=== PATIENT | female | born 1965 | race Caucasian/White ===

== ENCOUNTER → 2017-03-30 | Outpatient (CLI) | payer OTHER ==
[2015-11-16 16:47] VITALS: BP 139/57
[~2017-03-30] MED LIST: ALBU8.5H6 IH; CELE50CA PO; CHOL100017 PO; FLUT1DIS3 IH; LAMO200T3 PO; LISI-334 PO; LORA10CA PO; NAPR500T3 PO; TRAM50TA PO; [UNRECOGNIZED DRUG - REMARK]; [UNRECOGNIZED DRUG - REMARK] PO
--- NOTE | 2017-03-30 15:44 | RAD ---
DATE: 03/30/2017 EXAM: DIGITAL SCREEN BILAT W/CAD HISTORY: Routine screening. COMPARISON: 10/31/2012. This study was interpreted with the benefit of Computerized Aided Detection (CAD). FINDINGS: The parenchymal pattern is stable. No discrete mass or malignant appearing microcalcifications are identified. There are benign calcifications bilaterally. The axillae are unremarkable. Breast Density: FATTY The breast parenchyma is primarily fatty replaced. Breast parenchyma level density A. IMPRESSION: No mammographic features suspicious for malignancy are identified. BI-RADS CATEGORY: 2 BENIGN FINDING(S) RECOMMENDED FOLLOW-UP: 12M 12 MONTH FOLLOW-UP PQRS compliance statement: Patient information was entered into a reminder system with a target due date 03/30/2018 for the next mammogram. Mammography is a sensitive method for finding small breast cancers, but it does not detect them all and is not a substitute for careful clinical examination. A negative mammogram does not negate a clinically suspicious finding and should not result in delay in biopsying a clinically suspicious abnormality. "Our facility is accredited by the [employer] Mammography [employer]."
== END | disposition home or self-care (01) ==
LOC: MAMMO 14:43
PROVIDERS: ATTEND Nurse Practitioner
DX: Z12.31 Encounter for screening mammogram for malignant neoplasm of breast (principal)
CPT/HCPCS: G0202; 77067

== ENCOUNTER 2018-04-15 16:03 | Emergency (ER) | payer OTHER ==
[~2018-04-15] VITALS: Ht 152.4 cm; Wt 97.1 kg
[~2018-04-15 16:03] MED LIST changes: +NAPR-514 PO; -NAPR500T3 PO
[2018-04-15 16:05] VITALS: BP 131/73
--- NOTE | 2018-04-15 16:48 | RAD ---
CT head without intravenous contrast History: Nausea, vomiting, headache. Trauma to head 5 days ago. Comparison: None. Technique: Axial images are obtained of the head from the skull base through the vertex without IV contrast. Exposure: One or more of the following individualized dose reduction techniques were utilized for this examination: 1. Automated exposure control 2. Adjustment of the mA and/or kV according to patient size 3. Use of iterative reconstruction technique Findings: The ventricles are appropriate in size, shape, and location for the patient's age. No obvious intracranial mass, mass-effect, midline shift, hemorrhage or obvious acute infarction is identified. Basilar cisterns are patent. Bone windows demonstrate no acute calvarial abnormality. The visualized paranasal sinuses appear clear. Impression: 1. No acute intracranial process. Electronically signed by: Isaiah Guerin MD (04/15/2018 4:45 PM) [facility]
[2018-04-15] MEDS ORDERED: ONDA4TAB10 SL (17:07)
--- NOTE | 2018-04-15 17:08 | PHYS DOC ---
Past History Past Medical History: Asthma, Heart Disease, Hypertension, Other Past Surgical History: , Other Smoking: Less than 1pk/day Alcohol Use: None Drug Use: Other Adult General Chief Complaint Chief Complaint: HEADACHE HPI HPI Patient is a very pleasant 52-year-old female who presents for evaluation of headache, nausea, and difficulty concentrating since a head injury Sunday.` She states that she purchase some wooden furniture at a store which she loaded into her car and when she was leaving the parking lot she turned and the box hit her in the right side of the head. She states she has missed a few days of work because of the pain as well as the nausea and vomiting and that her work will need a note. She does not want anything for pain that she is willing to have something for nausea. She is alert and oriented 4, calm, and appears to be no distress. She states that the nausea was worse on Sunday and is gradually been getting better same with the pain. Review of Systems Review of Systems Constitutional: Denies fever or chills [] Eyes: Denies change in visual acuity, redness, or eye pain [] HENT: Denies nasal congestion or sore throat [] Respiratory: Denies cough or shortness of breath [] Cardiovascular: No additional information not addressed in HPI [] GI: Denies abdominal pain,bloody stools or diarrhea [] +N/V : Denies dysuria or hematuria [] Musculoskeletal: Denies back pain or joint pain [] Integument: Denies rash or skin lesions [] Neurologic: Denies focal weakness or sensory changes [] +FIGUEROA Endocrine: Denies polyuria or polydipsia [] All other systems were reviewed and found to be within normal limits, except as documented in this note. Allergies Allergies Allergies Coded Allergies Type Severity Reaction Last Updated Verified Sulfa (Sulfonamide Antibiotics) Allergy Intermediate 12/20/13 Yes ciprofloxacin Allergy Intermediate 12/20/13 Yes ciprofloxacin HCl Allergy Intermediate 12/20/13 Yes latex Allergy Intermediate 12/20/13 Yes Physical Exam Physical Exam Constitutional: Well developed, well nourished, no acute distress, non-toxic appearance. [] calm, appears comfortable HENT: Normocephalic, atraumatic, bilateral external ears normal, oropharynx moist, no oral exudates, nose normal. [] No head trauma noted Eyes: PERRLA, EOMI, conjunctiva normal, no discharge. [] Neck: Normal range of motion, no tenderness, supple, no stridor. [] NEXUS negative Cardiovascular:Heart rate regular rhythm, no murmur [] Lungs & Thorax: Bilateral breath sounds clear to auscultation [] Abdomen: Bowel sounds normal, soft, no tenderness, no masses, no pulsatile masses. [] Skin: Warm, dry, no erythema, no rash. [] Back: No tenderness, no CVA tenderness. [] Extremities: No tenderness, no cyanosis, no clubbing, ROM intact, no edema. [] Neurologic: Alert and oriented X 3, normal motor function, normal sensory function, no focal deficits noted. [] Psychologic: Affect normal, judgement normal, mood normal. [] Current Patient Data Vital Signs Vital Signs Date Time Temp Pulse Resp B/P (MAP) Pulse Ox O2 Delivery O2 Flow Rate FiO2 04/15/18 16:05 98.4 70 18 98 Room Air EKG EKG [] Radiology/Procedures Radiology/Procedures [address] [address] IMAGING REPORT Signed PATIENT: ZHANG STEWART ACCOUNT: [id number] : 1965 LOCATION: ER AGE: 52 SEX: F EXAM STATUS: REG ER ORD. PHYSICIAN: BRENDA BOLAÑOS DO REASON: headache, n/v, recent head trauma PROCEDURE: CT HEAD WO CONTRAST CT head without intravenous contrast History: Nausea, vomiting, headache. Trauma to head 5 days ago. Comparison: None. Technique: Axial images are obtained of the head from the skull base through the vertex without IV contrast. Exposure: One or more of the following individualized dose reduction techniques were utilized for this examination: 1. Automated exposure control 2. Adjustment of the mA and/or kV according to patient size 3. Use of iterative reconstruction technique Findings: The ventricles are appropriate in size, shape, and location for the patient's age. No obvious intracranial mass, mass-effect, midline shift, hemorrhage or obvious acute infarction is identified. Basilar cisterns are patent. Bone windows demonstrate no acute calvarial abnormality. The visualized paranasal sinuses appear clear. Impression: 1. No acute intracranial process. Electronically signed by: Isaiah Henriquez MD (04/15/2018 4:45 PM) [facility] DICTATED AND SIGNED BY: ISAIAH HENRIQUEZ MD DATE: 04/15/18 0161 CC: BRENDA BOLAÑOS DO; SHOLA CAUSEY MD ~ Course & Med Decision Making Course & Med Decision Making Pertinent Labs and Imaging studies reviewed. (See chart for details) [] Dragon Disclaimer Dragon Disclaimer This electronic medical record was generated, in whole or in part, using a voice recognition dictation system. Departure Departure: Impression: Primary Impression: Closed head injury Additional Impression: Concussion Disposition: HOME, SELF-CARE Condition: STABLE Referrals: SHOLA CAUSEY MD (PCP) Patient Instructions: Concussion and Brain Injury, Head Injury, Adult Additional Instructions: Take a nausea medicine as prescribed, as needed. Return to the ER immediately for new or worsening symptoms. Follow up with your doctor in the next 2-3 days. Scripts Ondansetron (ZOFRAN ODT) 4 Mg Tab.rapdis 1 TAB SL Q8HRS, #20 TAB Prov: BRENDA BOLAÑOS DO 04/15/18 Problem Qualifiers BRENDA BOLAÑOS DO Apr 15, 2018 17:08
== END 2018-04-15 17:13 | disposition home or self-care (01) ==
LOC: ER 16:03
DX: S06.0X0A Concussion without loss of consciousness, initial encounter (principal); I11.9 Hypertensive heart disease without heart failure; J45.909 Unspecified asthma, uncomplicated; F17.200 Nicotine dependence, unspecified, uncomplicated; Z88.2 Allergy status to sulfonamides; Z88.1 Allergy status to other antibiotic agents; Z91.040 Latex allergy status; W22.8XXA Striking against or struck by other objects, initial encounter; Y93.89 Activity, other specified; Y99.8 Other external cause status; Y92.481 Parking lot as the place of occurrence of the external cause
CPT/HCPCS: 70450; 99284-25

== ENCOUNTER 2018-11-26 16:31 | Emergency (ER) | payer OTHER ==
[~2018-11-26] VITALS: Ht 149.9 cm; Wt 99.8 kg
[~2018-11-26 16:31] MED LIST changes: +BUPR100T7 PO; +METF500T16 PO; +ONDA4TAB10 SL
[2018-11-26 16:37] VITALS: BP 139/72
--- NOTE | 2018-11-26 17:09 | PHYS DOC ---
Past History Past Medical History: Bipolar, Depression, Hypertension, Other Past Surgical History: , Knee Replacement, Other Smoking: Less than 1pk/day Alcohol Use: None Drug Use: Cocaine Social History Narrative: last week Adult General Chief Complaint Chief Complaint: head injury HPI HPI Patient is a 53 year old female who presents with complaining of head injury with headache and confusion. Patient states she was asked for 3 weeks ago and a metal bar hit her on her forehead without loss of consciousness. Patient states she has had frontal headache with confusion, ringing in her ear, blurred vision , nausea since her head injury. Patient rated her pain 6/10 and states she took [id number] pain medication didn't seek medical attention regarding the injury patient states she was fired 4 days after injury and her insurance is going to in 2 days and wants to have head CT before expiring insurance. Review of Systems Review of Systems Constitutional: Denies fever or chills [] Eyes: Denies change in visual acuity, redness, or eye pain [] HENT: Denies nasal congestion or sore throat [] Respiratory: Denies cough or shortness of breath [] Cardiovascular: No additional information not addressed in HPI [] GI: Denies abdominal pain, nausea, vomiting, bloody stools or diarrhea [] : Denies dysuria or hematuria [] Musculoskeletal: Denies back pain or joint pain [] Integument: Denies rash or skin lesions [] Neurologic: Reports headache and confusion, denies focal weakness or sensory changes [] Endocrine: Denies polyuria or polydipsia [] All other systems were reviewed and found to be within normal limits, except as documented in this note. Allergies Allergies Allergies Coded Allergies Type Severity Reaction Last Updated Verified Sulfa (Sulfonamide Antibiotics) Allergy Intermediate 12/20/13 Yes ciprofloxacin Allergy Intermediate 12/20/13 Yes ciprofloxacin HCl Allergy Intermediate 12/20/13 Yes latex Allergy Intermediate 12/20/13 Yes morphine Allergy Intermediate 04/21/18 Yes Physical Exam Physical Exam Constitutional: Well developed, well nourished, mild distress, non-toxic appearance. [] HENT: Normocephalic, atraumatic. Eyes: PERRLA, EOMI, conjunctiva normal, no discharge. [] Neck: Normal range of motion, no tenderness, supple, no stridor. [] Cardiovascular:Heart rate regular rhythm, no murmur [] Lungs & Thorax: Bilateral breath sounds clear to auscultation [] Abdomen: Bowel sounds normal, soft, no tenderness, no masses, no pulsatile masses. [] Skin: Warm, dry, no erythema, no rash. [] Back: No tenderness, no CVA tenderness. [] Extremities: No tenderness, no cyanosis, no clubbing, ROM intact, no edema. [] Neurologic: Alert and oriented X 3, normal motor and sensation. Psychologic: Affect anxious, judgement normal, mood normal. [] Current Patient Data Vital Signs Vital Signs Date Time Temp Pulse Resp B/P (MAP) Pulse Ox O2 Delivery O2 Flow Rate FiO2 11/26/18 16:37 97.6 66 20 96 Room Air EKG EKG [] Radiology/Procedures Radiology/Procedures [address] [address] IMAGING REPORT Signed PATIENT: ZHANG STEWART ACCOUNT: [id number] : 1965 LOCATION: ER AGE: 53 SEX: F EXAM STATUS: REG ER ORD. PHYSICIAN: MARY SELLERS MD REASON: head injury 3 weeks ago PROCEDURE: CT HEAD WO CONTRAST PQRS Compliance statement: One or more of the following individualized dose reduction techniques were utilized for this examination: 1. Automated exposure control. 2. Adjustment of the mA and/or kV according to patient size. 3. Use of iterative reconstruction technique. Indication:HEADACHE, INJURY TO HEAD THREE WEEKS AGO. DIZZINESS TECHNIQUE: CT head without IV contrast COMPARISON:None FINDINGS: No pathologic extra-axial or intra-axial fluid collection. The ventricles and basal cisterns are within normal limits. No acute intracranial bleed. No focal loss of johnson-white differentiation. No large scalp hematoma. Visualized orbits within normal limits. No acute calvarial fractures. Visualized paranasal sinuses and mastoid air cells are clear. IMPRESSION: No acute intracranial process. Electronically signed by: Ministerio Wong DO (11/26/2018 5:22 PM) [facility] DICTATED AND SIGNED BY: MINISTERIO WONG DO DATE: 11/26/18 1807 CC: MARY SELLERS MD; SHOLA CAUSEY MD ~ Course & Med Decision Making Course & Med Decision Making Pertinent Imaging studies reviewed. (See chart for details) discharge: I've spoken with the patient and/or caregivers. I've explained the patient's condition, diagnosis and treatment plan based on information available to me at this time. I've answered the patient's and/or caregivers questions and addressed any concerns. The patient and/or caregivers have a good understanding the patient's diagnosis, condition and treatment plan as can be expected at this point. Vital signs have been stabilized. The patient's condition is stable for discharge from the emergency department. The patient will pursue further outpatient evaluation with her primary care provider or other designated consulting physician as outlined in the discharge instructions. Patient and/or caregivers are agreeable to this plan of care and follow-up instructions have been explained in detail. The patient and/or caregivers have received these instructions in written format and expressed understanding of these discharge instructions. The patient and her caregivers are aware that if any significant change in condition or worsening of symptoms should prompt him to immediately return to this of the closest emergency department. If an emergent department is not readily available I would encourage him to call 911. Dragon Disclaimer Dragon Disclaimer This electronic medical record was generated, in whole or in part, using a voice recognition dictation system. Departure Departure: Impression: Primary Impression: Closed head injury Additional Impressions: Nausea Tobacco abuse Tobacco abuse counseling Disposition: HOME, SELF-CARE (at 1755) Condition: STABLE Referrals: SHOLA CAUSEY MD (PCP) Patient Instructions: Concussion and Brain Injury, Head Injury, Adult, Smoking Cessation Additional Instructions: Drink plenty of liquids Follow-up with your primary care physician in 3-5 days Return to ER if not getting better Scripts Ondansetron Hcl (ZOFRAN) 4 Mg Tablet 1 TAB PO Q6HRS for nausea and vomiting, #12 TAB Prov: MARY SELLERS MD 11/26/18 Naproxen (NAPROSYN) 500 Mg Tablet 500 MG PO BID for pain, #20 TAB Prov: MARY SELLERS MD 11/26/18 Cyclobenzaprine Hcl (CYCLOBENZAPRINE HCL) 10 Mg Tablet 1 TAB PO TID for pain, #30 TAB Prov: MARY SELLERS MD 11/26/18 Problem Qualifiers MARY SELLERS MD Nov 26, 2018 17:09
--- NOTE | 2018-11-26 17:25 | RAD ---
PQRS Compliance statement: One or more of the following individualized dose reduction techniques were utilized for this examination: 1. Automated exposure control. 2. Adjustment of the mA and/or kV according to patient size. 3. Use of iterative reconstruction technique. Indication:HEADACHE, INJURY TO HEAD THREE WEEKS AGO. DIZZINESS TECHNIQUE: CT head without IV contrast COMPARISON:None FINDINGS: No pathologic extra-axial or intra-axial fluid collection. The ventricles and basal cisterns are within normal limits. No acute intracranial bleed. No focal loss of johnson-white differentiation. No large scalp hematoma. Visualized orbits within normal limits. No acute calvarial fractures. Visualized paranasal sinuses and mastoid air cells are clear. IMPRESSION: No acute intracranial process. Electronically signed by: Ministerio Wong DO (11/26/2018 5:22 PM) [facility]
[2018-11-26] MEDS ORDERED: NAPR-683 PO (17:56)
[2018-11-26] MEDS ORDERED: CYCL-331 PO (17:56)
[2018-11-26] MEDS ORDERED: ONDA4TAB7 PO (17:56)
== END 2018-11-26 18:04 | disposition home or self-care (01) ==
LOC: ER 16:31
DX: S09.90XA Unspecified injury of head, initial encounter (principal); R41.0 Disorientation, unspecified; R42 Dizziness and giddiness; R11.0 Nausea; I10 Essential (primary) hypertension; F31.9 Bipolar disorder, unspecified; F17.200 Nicotine dependence, unspecified, uncomplicated; Z71.6 Tobacco abuse counseling; Z88.2 Allergy status to sulfonamides; Z88.1 Allergy status to other antibiotic agents; Z91.040 Latex allergy status; Z88.5 Allergy status to narcotic agent; W22.8XXA Striking against or struck by other objects, initial encounter; Y93.89 Activity, other specified; Y92.89 Other specified places as the place of occurrence of the external cause; Y99.8 Other external cause status
CPT/HCPCS: 70450; 99284-25

== ENCOUNTER 2019-04-15 13:42 | Emergency (ER) | payer OTHER ==
[~2019-04-15] VITALS: Ht 149.9 cm; Wt 90.9 kg
[~2019-04-15 13:42] MED LIST changes: +CYCL-331 PO; +NAPR-683 PO; +ONDA4TAB7 PO
--- NOTE | 2019-04-15 15:48 | RAD ---
Examination: Lower Extremity Venous Doppler Ultrasound History: Left foot pain Comparison: None Procedure: Ferrer scale, color flow 2D and spectal waveform analysis images are obtained with and without compression in the area of the common femoral vein, superficial femoral vein - femoral vein junction, main femoral vein (superficial femoral vein) and popliteal vein. Veins of the proximal calf are also imaged. Findings: There is normal duplex flow, color flow and compressibility of all visualized vein segments. No evidence of deep venous thrombus is present. Impression: No evidence of DVT in the left lower extremity venous system. Electronically signed by: Denis Mccain MD (04/15/2019 3:45 PM) [facility]
[2019-04-15] MEDS ORDERED: COLC0.6T34 PO (16:04)
[2019-04-15] MEDS ORDERED: HYDR-3165 PO (16:04)
--- NOTE | 2019-04-15 16:04 | PHYS DOC ---
Past History Past Medical History: Hypertension Past Surgical History: , Knee Replacement, Other Smoking: Less than 1pk/day Alcohol Use: Occasionally Additional Alcohol Information: When she does drinks she binge drinks 1-2 times per month Drug Use: Cocaine Social History Narrative: Last cocaine use was last week. Adult General Chief Complaint Chief Complaint: Foot pain HPI HPI Patient is a 53 year old female who presents with complaining of left foot and leg pain. Patient states she has had left leg and calf pain for almost 2 weeks after she had a fall and concern for possible blood clot. Also complaining of left foot pain for couple days as a severe pain and rated her pain 10 over 10 without injury and states she had the same pain previously with an episode of gout. Patient denies fever and chills, shortness of breath, focal neuro deficit, history of DVT and PE. Review of Systems Review of Systems Constitutional: Denies fever or chills [] Eyes: Denies change in visual acuity, redness, or eye pain [] HENT: Denies nasal congestion or sore throat [] Respiratory: Denies cough or shortness of breath [] Cardiovascular: No additional information not addressed in HPI [] GI: Denies abdominal pain, nausea, vomiting, bloody stools or diarrhea [] : Denies dysuria or hematuria [] Musculoskeletal: Denies back pain, reports joint pain [] Integument: Denies rash or skin lesions [] Neurologic: Denies headache, focal weakness or sensory changes [] Endocrine: Denies polyuria or polydipsia [] All other systems were reviewed and found to be within normal limits, except as documented in this note. Current Medications Current Medications Current Medications Medications (Trade) Dose Ordered Sig/Raman Start Time Stop Time Status Last Admin Dose Admin Fentanyl Citrate (Fentanyl 2ml Vial) 100 mcg STK-MED ONCE 04/15/19 14:47 04/15/19 14:48 DC Allergies Allergies Allergies Coded Allergies Type Severity Reaction Last Updated Verified Sulfa (Sulfonamide Antibiotics) Allergy Intermediate 12/20/13 Yes ciprofloxacin Allergy Intermediate 12/20/13 Yes ciprofloxacin HCl Allergy Intermediate 12/20/13 Yes latex Allergy Intermediate 12/20/13 Yes morphine Allergy Intermediate 04/21/18 Yes Physical Exam Physical Exam Constitutional: Well developed, well nourished, mild distress, non-toxic appearance. [] HENT: Normocephalic, atraumatic. Eyes: PERRLA, EOMI, conjunctiva normal, no discharge. [] Neck: Normal range of motion, no tenderness, supple, no stridor. [] Cardiovascular:Heart rate regular rhythm, no murmur [] Lungs & Thorax: Bilateral breath sounds clear to auscultation [] Skin: Warm, dry, no erythema, no rash. [] Back: No tenderness, no CVA tenderness. [] Extremities: Left lower extremity without edema or erythema or calf tenderness, tenderness of sole and midfoot, no cyanosis, no clubbing, ROM intact, no edema. [] Neurologic: Alert and oriented X 3, normal motor function, normal sensory fu nction, no focal deficits noted. [] Psychologic: Affect normal, judgement normal, mood normal. [] Current Patient Data Vital Signs Vital Signs Date Time Temp Pulse Resp B/P (MAP) Pulse Ox O2 Delivery O2 Flow Rate FiO2 04/15/19 14:50 Room Air 04/15/19 14:06 98.8 67 22 97 EKG EKG [] Radiology/Procedures Radiology/Procedures [][place] [address] IMAGING REPORT Signed PATIENT: ZHANG STEWART ACCOUNT: [id number] : 1965 LOCATION: ER AGE: 53 SEX: F EXAM STATUS: REG ER ORD. PHYSICIAN: MARY SELLERS MD REASON: lt foot pain and swelling PROCEDURE: VENOUS LOWER EXTREMITY LEFT Examination: Lower Extremity Venous Doppler Ultrasound History: Left foot pain Comparison: None Procedure: Ferrer scale, color flow 2D and spectal waveform analysis images are obtained with and without compression in the area of the common femoral vein, superficial femoral vein - femoral vein junction, main femoral vein (superficial femoral vein) and popliteal vein. Veins of the proximal calf are also imaged. Findings: There is normal duplex flow, color flow and compressibility of all visualized vein segments. No evidence of deep venous thrombus is present. Impression: No evidence of DVT in the left lower extremity venous system. Electronically signed by: Denis Mccain MD (04/15/2019 3:45 PM) [facility] DICTATED AND SIGNED BY: DENIS MCCAIN MD DATE: 04/15/19 1543 CC: MARY SELLERS MD; SHOLA CAUSEY MD ~ Course & Med Decision Making Course & Med Decision Making Pertinent Imaging studies reviewed. (See chart for details) discharge: I've spoken with the patient and/or caregivers. I've explained the patient's condition, diagnosis and treatment plan based on information available to me at this time. I've answered the patient's and/or caregivers questions and addressed any concerns. The patient and/or caregivers have a good understanding the patient's diagnosis, condition and treatment plan as can be expected at this point. Vital signs have been stabilized. The patient's condition is stable for discharge from the emergency department. The patient will pursue further outpatient evaluation with her primary care provider or other designated consulting physician as outlined in the discharge instructions. Patient and/or caregivers are agreeable to this plan of care and follow-up instructions have been explained in detail. The patient and/or caregivers have received these instructions in written format and expressed understanding of these discharge instructions. The patient and her caregivers are aware that if any significant change in condition or worsening of symptoms should prompt him to immediately return to this of the closest emergency department. If an emergent department is not readily available I would encourage him to call 911. Dragon Disclaimer Dragon Disclaimer This electronic medical record was generated, in whole or in part, using a voice recognition dictation system. Departure Departure: Impression: Primary Impression: Gout, arthritis Additional Impressions: Uncontrolled hypertension Tobacco abuse Tobacco abuse counseling Substance abuse Disposition: HOME, SELF-CARE (at 1557) Condition: IMPROVED Referrals: SHOLA CAUSEY MD (PCP) Patient Instructions: Gout Additional Instructions: Drink plenty of liquids Follow-up with your primary care physician in 3-5 days Return to ER if not getting better Scripts Hydrocodone Bit/Acetaminophen (NORCO 5-325 TABLET) 1 Each Tablet 1 TAB PO PRN Q6HRS PRN for PAIN, #10 TAB 0 Refills Prov: MARY SELLERS MD 04/15/19 Colchicine (COLCRYS) 0.6 Mg Tablet 1 TAB PO QID PRN for PAIN, #10 TAB 0 Refills Prov: MARY SELLERS MD 04/15/19 Problem Qualifiers MARY SELLERS MD Apr 15, 2019 16:04
[2019-04-15 16:05] VITALS: BP 150/90
== END 2019-04-15 16:18 | disposition home or self-care (01) ==
LOC: ER 13:42
DX: M10.9 Gout, unspecified (principal); I10 Essential (primary) hypertension; F17.200 Nicotine dependence, unspecified, uncomplicated; F14.10 Cocaine abuse, uncomplicated; Z71.6 Tobacco abuse counseling; Z88.2 Allergy status to sulfonamides; Z88.1 Allergy status to other antibiotic agents; Z91.040 Latex allergy status; Z88.5 Allergy status to narcotic agent
CPT/HCPCS: 93971; 96372; 99284; J3010

== ENCOUNTER → 2019-05-16 | Outpatient (CLI) | payer MEDICAID, OTHER ==
[~2019-05-16] MED LIST changes: +COLC0.6T34 PO; +HYDR-3165 PO
--- NOTE | 2019-05-16 16:00 | RAD ---
Thyroid ultrasound 05/16/2019 CLINICAL HISTORY: History of thyroid nodule. TECHNIQUE: A real-time ultrasound examination thyroid gland was performed. Multiple images were obtained. FINDINGS: Comparison study is dated 10/08/2012. The thyroid gland is mildly enlarged and heterogeneous, right greater than left consistent with a multinodular goiter. The right lobe of thyroid gland measures 5.0 x 1.9 x 1.8 cm in longitudinal, transverse, and AP dimensions. The left lobe of thyroid gland measures 4.6 x 1.8 x 1.0 cm in size. The isthmus measures 3 mm in thickness. Within the mid aspect of the right lobe of thyroid gland a hypoechoic nodule is seen which measures 9 mm in greatest diameter. This is unchanged from the previous examination. Two additional very small hypoechoic nodules are seen within the superior and inferior aspect of the right lobe of thyroid gland which measure 4 mm and 3 mm in greatest diameter. No focal abnormality of the left lobe of the thyroid gland is seen. IMPRESSION: Findings consistent with a multinodular goiter. The 9 mm hypoechoic nodule within the right lobe of thyroid gland is unchanged. Electronically signed by: Archie Artis MD (05/16/2019 3:57 PM) [facility]
== END | disposition home or self-care (01) ==
LOC: US 10:51
PROVIDERS: ATTEND Family Medicine
DX: E04.2 Nontoxic multinodular goiter (principal)
CPT/HCPCS: 76536

== ENCOUNTER → 2019-12-05 | Outpatient (CLI) | payer MEDICAID ==
--- NOTE | 2019-12-05 17:01 | RAD ---
CHEST PA LATERAL History: Shortness of breath Comparison: April 21, 2018 Findings: 2 views of the chest are submitted. There is no infiltrate, pneumothorax, or effusion. Pericardial cardiac silhouette is within normal limits in size. Impression: 1. There is no radiographic evidence of acute cardiopulmonary disease. Electronically signed by: Yamil Serrano MD (12/05/2019 4:57 PM) [id number]
== END ==
LOC: PMG 13:21
PROVIDERS: ATTEND Registered Nurse
DX: R06.02 Shortness of breath (principal)
CPT/HCPCS: 71046

== ENCOUNTER → 2020-02-10 | Outpatient (CLI) | payer MEDICAID | END | disposition home or self-care (01) | LOC: LAB 14:34 | PROVIDERS: ATTEND Obstetrics & Gynecology | DX: N90.89 Other specified noninflammatory disorders of vulva and perineum (principal) | CPT/HCPCS: 36415; 86592; 86695; 86696; 86703; 86803; 87340 ==

== ENCOUNTER 2020-03-29 09:45 | Emergency (ER) | payer MEDICAID ==
[~2020-03-29] VITALS: Ht 149.9 cm; Wt 90.0 kg
--- NOTE | 2020-03-29 09:54 | PHYS DOC ---
Past History Past Medical History: Hypertension Past Surgical History: , Knee Replacement, Other Smoking: Cigarettes, Less than 1pk/day Alcohol Use: Heavy Drug Use: Cocaine General Adult EDM: Chief Complaint: DIZZY/LIGHT HEADED HPI: HPI: 54-year-old female presents with report of "I do not feel well ". Patient reports she does not remember when the last time she slept was. Patient reports she has been using crack cocaine and drinking alcohol. Patient reports last used both this morning. Patient reports concerned that the crack cocaine she used this morning did not "taste the same ". Reports she thinks she might of struck her head recently. Denies fever chills. Denies suicidal or homicidal ideation. Review of Systems: Review of Systems: Constitutional: Denies fever or chills Eyes: Denies redness or eye pain HENT: Denies nasal congestion or sore throat Respiratory: Denies cough or shortness of breath Cardiovascular: Denies chest pain or palpitations GI: Denies abdominal pain, nausea, or vomiting : Denies dysuria or hematuria Musculoskeletal: Denies back pain or joint pain Integument: Denies rash or skin lesions Neurologic: Reports confusion and dizziness; denies focal weakness or sensory changes Complete systems were reviewed and found to be within normal limits, except as documented in this note. Current Medications: Current Meds: Current Medications Medications (Trade) Dose Ordered Sig/Raman Start Time Stop Time Status Last Admin Dose Admin Sodium Chloride 1,000 ml @ 1,000 mls/hr 1X ONCE 03/29/20 10:00 03/29/20 10:59 UNV Allergies: Allergies: Allergies Coded Allergies Type Severity Reaction Last Updated Verified Sulfa (Sulfonamide Antibiotics) Allergy Intermediate 12/20/13 Yes ciprofloxacin Allergy Intermediate 12/20/13 Yes ciprofloxacin HCl Allergy Intermediate 12/20/13 Yes latex Allergy Intermediate 12/20/13 Yes morphine Allergy Intermediate 04/21/18 Yes Physical Exam: PE: Constitutional: Well developed, well nourished, tearful, non-toxic appearance HENT: Normocephalic, atraumatic Eyes: PERRL, EOMI, conjunctiva normal, no discharge, no nystagmus Neck: Normal range of motion, no tenderness, supple Lungs & Thorax: No respiratory distress, equal chest rise and fall Abdomen: Soft, obese, no tenderness Skin: Warm, dry, no erythema, no rash Extremities: No tenderness, ROM intact, no edema Neurologic: Alert and oriented X 3, normal motor function, normal sensory function, no focal deficits noted Psychologic: Affect anxious, judgment normal EKG: EKG: @1007 NSR at 75bpm, NO ST elevation, QRS 68ms, QT/QTc 416/467ms Radiology/Procedures: Radiology/Procedures: PROCEDURE: CT HEAD WO CONTRAST CT HEAD WO CONTRAST Date: 03/29/2020 9:46 AM Clinical Indication: altered mental status Comparison: CT head dated 11/26/2018. Technique: 5 mm axial tomographic images were obtained of the head without contrast. These were viewed on brain and bone windows. CT HEAD FINDINGS: Patient's head is slightly tilted in the scanner which slightly limits assessment for symmetry. The brain parenchyma is normal in attenuation. No intra- or extra-axial mass or fluid collection. No acute hemorrhage. The ventricles are normal in size, shape, and morphology. The johnson-white matter junction is normal. The basilar cisterns are patent. The visualized paranasal sinuses are normal. The visualized portions of the orbits and globes are normal. The mastoid air cells are clear. No aggressive osseous lesion or fracture. Impression: No acute intracranial process. PQRS Compliance Statement: One or more of the following individualized dose reduction techniques were utilized for this examination: 1. Automated exposure control 2. Adjustment of the mA and/or kV according to patient size 3. Use of iterative reconstruction technique Electronically signed by: David Knox MD (03/29/2020 10:45 AM) [id number] PROCEDURE: PORTABLE CHEST 1V Examination: PORTABLE CHEST 1V History: Reason: altered mental status / Spl. Instructions: / History: Comparison/Correlation: 12/05/2019 two-view chest x-ray exam Findings: PA frontal view of the chest was obtained. Heart size and pulmonary vessels are normal. No infiltrate or pleural effusion. No pneumothorax. Bony structures are unremarkable. Impression: No active disease. Electronically signed by: Marty Hart MD (03/29/2020 10:44 AM) [id number] Course & Med Decision Making: Course & Med Decision Making Pertinent Labs and Imaging studies reviewed. (See chart for details) Patient presents with report of not feeling well with associated dizziness. Patient reports has recently gone on a moon of drinking alcohol and using crack cocaine. Reports also has not been sleeping. Patient tearful. Denies suicidal or homicidal ideation. Patient neurologically intact. CT head without acute process. Chest x-ray clear. EKG stable. Labs obtained and posted to chart. Heme concentrated. Lactic acid 3.9. UA without infection. IV fluid hydration provided x 1L NS and 1L Banana bag. ETOH 86. Rechecked Lactic acid with interval improvement. Patient stable for discharge with outpatient follow-up with PCP/mental health. Mental health and rehab information provided. Discussed findings and plan with patient, who acknowledges understanding and agreement. Cyndie Disclaimer: Cyndie Disclaimer: This electronic medical record was generated, in whole or in part, using a voice recognition dictation system. Departure Departure: Impression: Primary Impression: Cocaine abuse Additional Impressions: Alcohol abuse Lactic acidosis Disposition: 01 HOME/RESIDENCE PRIOR TO ADM Condition: STABLE Referrals: SHOLA CAUSEY MD (PCP) Patient Instructions: Alcohol and Drug Addiction, Finding Treatment, Drug Abuse, FAQs, How Much is Too Much Alcohol, [id number] Justification of Admission: Justification of Admission: Justification of Admission Dx: N/A TIRSO EATON DO Mar 29, 2020 09:54
[2020-03-29] MEDS ORDERED: IV NORMAL SALINE 1,000ML 1,000 ML IV ONE (10:00)
--- NOTE | 2020-03-29 10:18 | EKG ---
[address] [address] Test Date: 2020-03-29 Test Time: 10:07:15 Pat Name: ZHANG STEWART Department: Room: Gender: F Retail Training Manager: : 1965 Requested By: TIRSO EATON Order Number: [id number] Reading MD: Leif Devries Measurements Intervals [place] Rate: 75 P: 62 MD: 148 QRS: 14 QRSD: 68 T: 60 QT: 416 QTc: 467 Interpretive Statements SINUS RHYTHM QRS(T) CONTOUR ABNORMALITY CONSISTENT WITH ANTEROSEPTAL INFARCT AGE UNDETERMINED ABNORMAL ECG RI6.02 Compared to ECG 04/21/2018 18:39:48 No significant changes Electronically Signed On 04-26-2020 12:33:29 CDT by Leif Devries
--- NOTE | 2020-03-29 10:47 | RAD ---
Examination: PORTABLE CHEST 1V History: Reason: altered mental status / Spl. Instructions: / History: Comparison/Correlation: 12/05/2019 two-view chest x-ray exam Findings: PA frontal view of the chest was obtained. Heart size and pulmonary vessels are normal. No infiltrate or pleural effusion. No pneumothorax. Bony structures are unremarkable. Impression: No active disease. Electronically signed by: Marty Hart MD (03/29/2020 10:44 AM) [id number]
--- NOTE | 2020-03-29 10:48 | RAD ---
CT HEAD WO CONTRAST Date: 03/29/2020 9:46 AM Clinical Indication: altered mental status Comparison: CT head dated 11/26/2018. Technique: 5 mm axial tomographic images were obtained of the head without contrast. These were viewed on brain and bone windows. CT HEAD FINDINGS: Patient's head is slightly tilted in the scanner which slightly limits assessment for symmetry. The brain parenchyma is normal in attenuation. No intra- or extra-axial mass or fluid collection. No acute hemorrhage. The ventricles are normal in size, shape, and morphology. The johnson-white matter junction is normal. The basilar cisterns are patent. The visualized paranasal sinuses are normal. The visualized portions of the orbits and globes are normal. The mastoid air cells are clear. No aggressive osseous lesion or fracture. Impression: No acute intracranial process. PQRS Compliance Statement: One or more of the following individualized dose reduction techniques were utilized for this examination: 1. Automated exposure control 2. Adjustment of the mA and/or kV according to patient size 3. Use of iterative reconstruction technique Electronically signed by: David Knox MD (03/29/2020 10:45 AM) [id number]
[2020-03-29 10:52] LABS: BASO # 0.1 x10^3/uL (0.0-0.2); BASO % 1 % (0-3); EOS # 0.1 x10^3/uL (0.0-0.7); EOS % 1 % (0-3); HEMATOCRIT 49.1 % (36.0-47.0); HEMOGLOBIN 16.7 g/dL (12.0-15.5); LYMPH # 1.9 x10^3/uL (1.0-4.8); LYMPH % 26 % (24-48); MEAN CORPUSCULAR HEMOGLOBIN 33 pg (25-35); MEAN CORPUSCULAR HGB CONC 34 g/dL (31-37); MEAN CORPUSCULAR VOLUME 97 fL (79-100); MONO # 0.8 x10^3/uL (0.0-1.1); MONO % 11 % (0-9); NEUT # 4.6 x10^3uL (1.8-7.7); NEUT % 62 % (31-73); PLATELET COUNT 267 x10^3/uL (140-400); RED BLOOD COUNT 5.06 x10^6/uL (3.50-5.40); RED CELL DISTRIBUTION WIDTH 14.7 % (11.5-14.5); WHITE BLOOD COUNT 7.5 x10^3/uL (4.0-11.0)
[2020-03-29 11:00] LABS: CALCIUM 8.9 mg/dL (8.5-10.1); CREATININE 0.7 mg/dL (0.6-1.0); GFR 87.9; POTASSIUM 3.5 mmol/L (3.5-5.1)
[2020-03-29 11:16] LABS: ALBUMIN 3.6 g/dL (3.4-5.0); ALBUMIN/GLOBULIN RATIO 0.9 (1.0-1.7); TOTAL BILIRUBIN 0.6 mg/dL (0.2-1.0); TOTAL PROTEIN 7.6 g/dL (6.4-8.2)
[2020-03-29 11:27] LABS: BARBITURATES NEG (NEG); BENZODIAZEPINES NEG (NEG); CANNABINOIDS NEG (NEG); COCAINE POS (NEG); METHADONE NEG (NEG); OPIATES NEG (NEG); PHENCYCLIDINE NEG (NEG)
[2020-03-29 11:28] LABS: AMPHETAMINE/METHAMPHETAMINE NEG (NEG)
[2020-03-29 11:31] LABS: BACTERIA,URINE FEW /HPF (0-FEW); BILIRUBIN,URINE NEG (NEG); CLARITY,URINE HAZY; COLOR,URINE YELLOW; GLUCOSE,URINE 100 mg/dL (NEG); NITRITE,URINE NEG (NEG); RBC,URINE OCC /HPF (0-2); SQUAMOUS EPITHELIAL CELL,UR MOD /LPF; UROBILINOGEN,URINE 0.2 mg/dL (0.2 mg/dL)
[2020-03-29] MEDS ORDERED: MVI, ADULT NO.4 WITH VIT K 10 ML, FOLIC ACID INJ 1 MG, THIAMINE INJ 100 MG in IV RINGER... IV ONE (11:45)
[2020-03-29 14:02] VITALS: BP 147/89
== END 2020-03-29 14:35 | disposition home or self-care (01) ==
LOC: ER 09:45
DX: F14.10 Cocaine abuse, uncomplicated (principal); F10.10 Alcohol abuse, uncomplicated; E87.2 Acidosis; I10 Essential (primary) hypertension; F17.210 Nicotine dependence, cigarettes, uncomplicated; Z88.2 Allergy status to sulfonamides; Z88.1 Allergy status to other antibiotic agents; Z88.5 Allergy status to narcotic agent; Z91.040 Latex allergy status; Y90.4 Blood alcohol level of 80-99 mg/100 ml
CPT/HCPCS: 36415; 70450; 71045; 80053; 80307; 81001; 82140; 82553; 83605; 83735; 84484; 85025; 85610; 85730; 93005; 96361; 96365; 99285; G0480; J7030; J7120

== ENCOUNTER → 2020-05-13 | Outpatient (CLI) | payer MEDICAID ==
--- NOTE | 2020-05-13 16:18 | RAD ---
DATE: 05/13/2020 10:45 AM EXAM: DIGITAL SCREEN BILAT W/CAD HISTORY: Screening COMPARISON: 03/30/2017 Bilateral full field craniocaudal and mediolateral oblique images were obtained using digital technique. This study was interpreted with the benefit of Computerized Aided Detection (CAD). FINDINGS: Breast Density: FATTY The Breast Parenchyma is primarily fatty replaced. Breast parenchyma level density A. No suspicious masses, microcalcifications or architectural distortion is present to suggest malignancy in either breast. The visualized axillae are unremarkable. IMPRESSION: No mammographic evidence of malignancy. BI-RADS CATEGORY: 1 NEGATIVE RECOMMENDED FOLLOW-UP: 12M 12 MONTH FOLLOW-UP Annual screening mammography is recommended, unless clinically indicated sooner based on symptoms or change in physical exam. PQRS compliance statement: Patient information was entered into a reminder system with a target due date for the next mammogram. Mammography is a sensitive method for finding small breast cancers, but it does not detect them all and is not a substitute for careful clinical examination. A negative mammogram does not negate a clinically suspicious finding and should not result in delay in biopsying a clinically suspicious abnormality. "Our facility is accredited by the [employer] Mammography Program."
== END | disposition home or self-care (01) ==
LOC: MAMMO 10:35
PROVIDERS: ATTEND Family Medicine
DX: Z12.31 Encounter for screening mammogram for malignant neoplasm of breast (principal)
CPT/HCPCS: 77067

== ENCOUNTER → 2020-06-16 | Outpatient (CLI) | payer MEDICAID ==
--- NOTE | 2020-06-16 08:46 | RAD ---
ABDOMEN LTD History: Right upper quadrant pain, nausea Comparison: None. Findings: Multiple sonographic images of the abdomen are submitted. Right kidney measured 10.8 x 5.8 x 4.6 cm, no hydronephrosis. Hepatic echotexture is within normal limits, no focal hepatic lesion demonstrated. Right lobe of the liver measured 15.7 cm longitudinal. Common bile duct is within normal limits about 0.4 cm. Gallbladder is present, some echogenic foci adherent to the gallbladder wall with associated artifact. Gallbladder wall is not significantly thickened about 0.2 cm. There is no demonstrable pericholecystic fluid. There is no demonstrable abnormality of the visualized pancreas. Impression: 1. 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 Electronically signed by: Yamil Serrano MD (06/16/2020 8:43 AM) [id number]
== END | disposition home or self-care (01) ==
LOC: US 08:01
PROVIDERS: ATTEND Physician Assistant Medical
DX: R10.11 Right upper quadrant pain (principal)
CPT/HCPCS: 76705

== ENCOUNTER → 2020-07-21 | Outpatient (CLI) | payer MEDICAID ==
--- NOTE | 2020-07-21 12:25 | RAD ---
EXAM: 2 views left shoulder DATE: 07/21/2020 12:00 AM INDICATION: Reason: S/P SHOULDER SURGERY / Spl. Instructions: / History: COMPARISON: No Prior FINDINGS/ IMPRESSION: 1. 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 No subglenoid erosion is seen. 2. Expected postoperative soft tissue changes. Electronically signed by: Blair Pollock MD (07/21/2020 12:22 PM) [id number]
== END ==
LOC: DXRAD 11:51
PROVIDERS: ATTEND Orthopaedic Surgery
DX: M25.512 Pain in left shoulder (principal); Z96.612 Presence of left artificial shoulder joint
CPT/HCPCS: 73030

== ENCOUNTER → 2020-08-24 | Outpatient (CLI) | payer MEDICAID ==
--- NOTE | 2020-08-24 17:14 | RAD ---
Left shoulder 3 views INDICATION: Shoulder pain COMPARISON: Left shoulder x-rays of 07/21/2020 FINDINGS: Left reverse total shoulder arthroplasty is redemonstrated with anatomic alignment. Bones are unremarkable otherwise. Soft tissues reveal no significant additional findings. The surgical skin tracy have since been removed. IMPRESSION: Left reverse humeral arthroplasty in good alignment with no acute superimposed findings shown by x-ray. Electronically signed by: Ryan Walton MD (08/24/2020 5:11 PM) [id number]
== END ==
LOC: DXRAD 15:48
PROVIDERS: ATTEND Orthopaedic Surgery
DX: M25.512 Pain in left shoulder (principal); Z96.612 Presence of left artificial shoulder joint
CPT/HCPCS: 73030

== ENCOUNTER → 2020-10-25 | Outpatient (CLI) | payer MEDICAID ==
--- NOTE | 2020-10-25 15:13 | RAD ---
EXAM: 3 views left shoulder DATE: 10/25/2020 10:26 AM INDICATION: Reason: SHOULDER PAIN / Spl. Instructions: / History: COMPARISON: 08/24/2020 FINDINGS: Changes of reverse total shoulder arthroplasty, in good alignment without definite hardware applicati on or fracture. No definite subjacent glenoid erosion or distal coil fracture is identified. IMPRESSION: Changes of left reverse total shoulder arthroplasty, in good alignment without definite hardware comp lication or fracture. Electronically signed by: Blair Pollock MD (10/25/2020 3:11 PM) [email or web address]
== END ==
LOC: DXRAD 09:45
PROVIDERS: ATTEND Orthopaedic Surgery
DX: M25.512 Pain in left shoulder (principal); Z96.619 Presence of unspecified artificial shoulder joint
CPT/HCPCS: 73030

== ENCOUNTER → 2020-12-21 | Outpatient (CLI) | payer MEDICAID ==
[~2020-12-21] MED LIST changes: -LISI-334 PO; +LISI20TA18 PO
--- NOTE | 2020-12-21 14:55 | RAD ---
Bone densitometry study: Date: 12/21/2020. Indication: Screening. Procedure: DEXA study. Findings: The bone mineral density from L1 through L4 is 1.333 grams/cm squared with T-score 1.3. The bone mineral density in the right hip involving the neck of the left femur is 1.022 Grams per cm squared with a T-score of 0.5. Impression: Normal mineral density in the right hip and spine. Electronically signed by: Ryan Walton MD (12/21/2020 2:53 PM) [id number]
== END ==
LOC: DXRAD 09:03
PROVIDERS: ATTEND Orthopaedic Surgery
DX: Z78.0 Asymptomatic menopausal state (principal); M85.88 Other specified disorders of bone density and structure, other site; N95.9 Unspecified menopausal and perimenopausal disorder
CPT/HCPCS: 77080

== ENCOUNTER → 2021-02-22 | Outpatient (CLI) | payer MEDICAID ==
--- NOTE | 2021-02-22 16:02 | RAD ---
EXAM: Left knee, 3 views. HISTORY: Pain. COMPARISON: 11/16/2015 FINDINGS: 3 views of the left knee are obtained. There is no fracture, dislocation or subluxation. Th ere is moderate medial and lateral compartment and mild patellofemoral compartment spurring. There is no significant joint effusion. IMPRESSION: Mild to moderate osteoarthritis of the left knee. No acute osseous finding. Electronically signed by: Maricel Estrada MD (02/22/2021 4:00 PM) [id number]
== END ==
LOC: RAD 15:22
PROVIDERS: ATTEND Orthopaedic Surgery
DX: M17.12 Unilateral primary osteoarthritis, left knee (principal); M76.892 Other specified enthesopathies of left lower limb, excluding foot
CPT/HCPCS: 73562

== ENCOUNTER → 2021-03-11 | Outpatient (CLI) | payer MEDICAID ==
--- NOTE | 2021-03-11 09:50 | RAD ---
STUDY: 1. CT neck without contrast 2. CT chest without contrast INDICATION: Wheezing. Endobronchial lesion. Focal wheezing at the right lower lobe. COMPARISON: CT chest 08/13/2020 TECHNIQUE: CT imaging of the neck and chest performed without the use of intravenous contrast. Mejia l and sagittal reformats were obtained. One or more of the following individualized dose reduction techniques were utilized for this examinat ion: 1. Automated exposure control 2. Adjustment of the mA and/or kV according to patient size 3. Use of iterative reconstruction technique. FINDINGS: NECK: No discrete lesion throughout the neck. Normally configured epiglottis. Maintained aeration of the va llecula and piriform sinuses. Unremarkable glottis and subglottic region. No foreign body within the airway. No tonsillar or peritonsillar fluid collection. No edema of the parapharyngeal spaces. Unremarkable p revertebral soft tissues. No discrete thyroid nodule. Symmetric density of the submandibular and parotid glands. No cervical ch ain adenopathy by size criteria. The partially assessed intracranial contents are unremarkable. Symmetric positioning of the globes. T he intraconal soft tissues are normal. No large dental caries or periapical lucency seen to involve the residual teeth. Discogenic arthrosis at C5-C6 and C6-C7 in addition to uncovertebral joint hypertrophy at these levels. Resultant mild os seous neural foraminal stenosis. Central canal stenosis favored greatest at C6-C7 but very poorly vijay racterized due to beam attenuation and technique. CHEST: Streak artifact relating to a reverse total shoulder arthroplasty on the left. 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 Nonaneurysmal aorta. Dense calcific coronar y artery disease mainly along the LAD. Main pulmonary artery caliber is within normal limits. No mediastinal or hilar lymphadenopathy. Tracheal morphology is within normal limits. Slightly more undulating jordan of the left mainstem bron chus relative to the right. Bronchial narrowing at a few locations such as best seen involving the ri ght middle lobe bronchus on image 39 series 3. Narrowing also seen at the distal aspect of the right superior lobar bronchus and extending to involve the anterior segment bronchus, image 30 series 3. Na rrowing of the anterior basal segmental bronchus of the right lower lobe, image 45 series 3. Mild sca ttered central bronchial wall thickening. No well delineated endobronchial mass. No localized airspac e infiltrate, suspicious nodule, pleural effusion or pneumothorax. No axillary adenopathy. No acute or significant chronic abnormality at the upper abdomen. No acute or aggressive osseous process. IMPRESSION: NECK: 1. No abnormality of the airway or surrounding soft tissues within the neck to help explain the patie nt's symptoms. No cervical chain adenopathy. CHEST: 1. Several areas of tracheal stenosis seen on the right more so than left with a construction representative areas of narrowing at the right middle lobe bronchus (image 39 series 3), right superior lobar to anterior segment bronchi (image 30 series 3) and right anterior basal segment bronchus (image 45 series 3). N o discrete mass. The jordan of the central airways are slightly undulating but without discrete nodula rity. Mild central bronchial wall thickening. Note is made that similar findings were present on the 08/13/2020 comparison indicating a chronic process. The most likely etiology would be reactive narrow ing from prior infectious or inflammatory bronchitis. 2. 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 3. Dense coronary artery calcific atherosclerosis mainly along the LAD. Electronically signed by: MARILYNN LEON MD (03/11/2021 9:47 AM) [id number]
== END ==
LOC: CT 08:29
PROVIDERS: ATTEND Internal Medicine
DX: R06.2 Wheezing (principal); I25.10 Atherosclerotic heart disease of native coronary artery without angina pectoris
CPT/HCPCS: 70490; 71250